=== PATIENT | male | born 1990 | race Caucasian/White ===

== ENCOUNTER 2020-04-25 08:41 | Outpatient (CLI) | payer SELFPAY | END 2020-04-25 09:01 | PROVIDERS: PCP Emergency Medicine; Visit Provider Family Medicine | DX: R69 Illness, unspecified (principal) ==

== ENCOUNTER 2020-09-14 08:25 | Emergency (ER) | payer SELFPAY ==
[2020-09-14] VITALS (23 sets, daily range): BP systolic 116–134; BP diastolic 69–78; PULSE 62–90; RESP 10–24; TEMP 37.4; O2SAT 95–98
--- NOTE | 2020-09-14 08:35 | RT.EKG_ITS ---
APPROVED REPORT Exam: Resting ECG Patient Location: E HR:78 bpm ECG Measurements Heart Rate 78 AXIS HI 138 P 19 QRSd 90 QRS 20 QT 357 T 59 QTc 406 Conclusion Sinus rhythm...normal P axis, V-rate 60- 99 I have reviewed and interpreted ECG and agree with software generated interpretation. Physician: NO stemi. unremarkable
--- NOTE | 2020-09-14 08:36 | ED.GENADUL_ITS ---
Discharge Plan Disposition Patient Disposition: HOME Condition: Fair Discharge Details Clinical Impression: Right lower lobe pulmonary infiltrate, Pulmonary emboli Primary Care Provider: Jairo Leal ED Provider: Naty Luong Home Meds and New Rx's Prescriptions: New Cassandraquis DVT-PE Treat 30D Start 5 mg (74 tabs) tablets,dose pack See Rx Instructions .ROUTE .COMPLEX Qty: 74 RF: 0 doxycycline hyclate 100 mg tablet 100 mg PO BID 7 Days Qty: 14 RF: 0 No Action acetaminophen 325 MG tablet 2 - 3 tab PO PRN RF: 0 albuterol sulfate 8.5 GM HFA aerosol inhaler 2 puff Inhalation Q4H PRN Qty: 1 RF: 0 escitalopram oxalate 10 MG tablet 10 mg PO DAILY 30 Days Qty: 30 RF: 5 Discharge Instructions Instructions: Pulmonary Embolism (ED), Community Acquired Pneumonia (ED) Additional Instructions: Follow up with primary care provider in 3-5 days. Return to ED sooner if any worsening or concerns. Increase oral fluids. Please take Tylenol or Ibuprofen with food every 4-6 hours as needed for pain and swelling. Alternate ice and heat. Take medications as directed Referrals: Jairo Leal. [Primary Care Provider] - Medical Decision Making <Naty Luong - Last Filed: 09/14/20 13:40> 30-[id number]-wfv-year-old male presents to ER with chief complaint of right-sided chest pain and shortness of breath (difficulty taking a deep breath) for the last 4 days. Denies any injury. Denies productive cough. Associated symptoms include diaphoresis, worsening pain with laying down, worsening pain with moving right arm, patient reports that last night his right arm was swollen. He does have a past medical history of asthma, depression. Patient has not taken any Tylenol or ibuprofen since last night. After initial presentation ER attending Dr. Porras at bedside with POCUS viewing the chest wall. There is good chest wall movement. EKG was reviewed by Dr. Karan Porras DO ER attending, please see his official report. Normal sinus rhythm no ectopy no STEMI. Initial troponin within normal limits, CBC shows a white blood cell count of 12.22, D-dimer is elevated at 2000 419 glucose is 114, the rest of the CMP is largely within normal limits. X-rays discontinued and CT chest abdomen pelvis ordered to rule out PE. Questionable loss of bowel or bladder control, per patient report, does have a history of back pain. Does have some right-sided axillary chest pain which radiates up into his neck increase pain with right arm movement. Differential diagnosis includes but not limited to PE, pneumothorax, coronary artery disease, pneumonia, URI, musculoskeletal pain, rib fracture, less likely cauda equina,. 1026: Spoke with Dr. Chan radiologist regarding patient's chest CT there is a pulmonary vessel that is unopacified which is a potential for PE, also some right lower lobe infiltrate and a small pleural effusion on the right. He recommends ultrasound of the extremity to rule out possible DVT. EXAM: CT CHEST PE ABD PELVIS W CLINICAL HISTORY: Right sided chest pain, Back Pain,?Urinary incont. TECHNIQUE: Imaging Protocol: Axial CT angiography was performed with multi- slice acquisition and multi-planar and/or 3D reconstructions. CONTRAST MATERIAL: Intravenous: Omnipaque 350 Contrast volume:100 mL COMPARISON: CT RENAL COLIC WO CONTRAST from 12/10/2010 FINDINGS: The examination is limited due to patient motion artifact. CHEST: Pulmonary Arteries: There is a single vessel which shows no enhancement in the right middle lobe. The possibility of pulmonary embolus should be considered. No other pulmonary artery filling defects are seen. Tracheobronchial tree: Patent where visualized. Mediastinum and Brittani: No dominant adenopathy or fluid collection. Pulmonary parenchyma: Peripheral ground-glass opacities in the right middle and right lower lobes. The left lung is clear. No architectural distortion. Pleura: There is a small right pleural effusion. No left pleural effusion is present. There is no pneumothorax. Heart: The heart is not dilated. No coronary artery calcifications are seen. No pericardial effusion. No evidence of right heart strain. Aorta: Thoracic aorta non-dilated. No evidence of dissection. Bones: Normal. ABDOMEN: Liver: Fatty liver. No measurable mass. Portal, Superior Mesenteric, and Splenic Veins: Unremarkable. Gallbladder and Biliary Tract: No radiodense calculus or dilation. Pancreas: Normal density, no abnormal calcifications or inflammatory process. Spleen: Normal. Adrenals: No masses seen. Kidneys: Normal size, contour and axis. Right nephrolithiasis. No ureterolithiasis or hydronephrosis. No masses seen. Abdominal Aorta: Abdominal portion non-dilated. Bowel: No obstruction or bowel wall thickening. Appendix is unremarkable. Peritoneal Cavity: No ascites, collection or mesenteric inflammatory response. Lymph Nodes: Within normal limits. Bones: Unremarkable. Soft Tissues: Unremarkable. PELVIS: Bladder: Symmetric distention, no gross wall thickening. Reproductive Organs: Unremarkable as visualized. Lymph Nodes: Within normal limits. Bones: Within normal limits. IMPRESSION: 1. Single pulmonary artery vessel in the right middle lobe which lacks enhancement suspicious for pulmonary embolus. No evidence of right heart strain. 2. Peripheral right middle and right lower lobe infiltrates and right pleural effusion. An infectious or inflammatory process should be considered. 3. Extremity ultrasound should be considered for further evaluation. 4. Right nephrolithiasis. No hydronephrosis. 5. Fatty infiltration of the liver. 6. No acute abdominal or pelvic process. 7. Results of this exam have been verbally communicated with provider. 1037: Spoke with Dr. Kang discussed patient case and details, she does not recommend admission at this time due to patient requiring no oxygen, and not being tachypneic. At this time ultrasound of right upper extremity is pending to rule out DVT. Covid test ordered and is pending. Patient will become PUI. 1224: Covid swab negative patient is no longer PUI. We will give patient 10 mg Eliquis and start patient on doxycycline here in department for possible pneumonia. Exam(s) a US:US upper extremity venous RT EXAM: US UPPER EXTREMITY VENOUS RT CLINICAL HISTORY: R/O DVT, Right arm swelling discoloration. TECHNIQUE: Ultrasound examination of the right upper extremity venous system(s) is performed using grayscale, color-flow, and spectral Doppler analysis. COMPARISON: No exams were available for comparison FINDINGS: The right internal jugular, axillary, subclavian, cephalic, basilic, brachial, radial, and ulnar veins are patent without evidence of thrombosis. IMPRESSION: No DVT. Patient reevaluation and discussion of home care and strict return instructions. Patient is to be discharged on doxycycline 100 mg twice daily and Eliquis. First dose of 10 mg given here in department. Patient states he is rather go home when he is feeling somewhat better prior to discharge. Discussed strict return instructions including increased shortness of breath, fever, worsening trouble breathing or any concerns. Patient placed on the care management list for follow-up with PCP in 3 to 5 days. HPI <Naty Luong - Last Filed: 09/14/20 13:40> General Mode of arrival: wheelchair . Date/Time Provider Initiated Documentation: 09/14/20 08:25 . Limitations to Documentation: no limitations . Information obtained by: patient . HPI Narrative: 89-vidg-[age]-year-old male presents to ER with chief complaint of right-sided chest pain and shortness of breath (difficulty taking a deep breath) for the last 4 days. Denies any inj ury. Denies productive cough. Associated symptoms include diaphoresis, worsening pain with laying down, worsening pain with moving right arm, patient reports that last night his right arm was swollen. He does have a past medical history of asthma, depression. Patient has not taken any Tylenol or ibuprofen since last night. Related Data Home Medications Medication Instructions Recorded Confirmed acetaminophen 2 - 3 tab PO PRN 03/31/13 albuterol sulfate 2 puff INHALATION Q4H PRN #1 puff 03/31/13 escitalopram oxalate 10 mg PO DAILY 30 Days #30 tab-cap 05/27/17 apixaban [Eliquis DVT-PE Treat 30D See Rx Instructions .ROUTE 09/14/20 Start] .COMPLEX #74 dose pk doxycycline hyclate 100 mg PO BID 7 Days #14 tab 09/14/20 Previous Rx's Medication Instructions Recorded escitalopram oxalate 10 mg PO DAILY 30 Days #30 tab-cap 05/27/17 apixaban [Eliquis DVT-PE Treat 30D See Rx Instructions .ROUTE 09/14/20 Start] .COMPLEX #74 dose pk doxycycline hyclate 100 mg PO BID 7 Days #14 tab 09/14/20 Allergies Allergy/AdvReac Type Severity Reaction Status Date / Time Penicillins Allergy Unknown unkown as Unverified 09/14/20 08:39 child Review of Systems <Naty Luong - Last Filed: 09/14/20 13:40> Narrative: Constitutional: Negative for weight loss, alert and oriented, well groomed, normal body habitus, appears uncomfortable. Positive diaphoresis. Denies fever. HEENT: Denies trauma, blurry vision, nasal discharge, trouble swallowing. Reports pain that radiates up into the right side of his neck, states it hurts when I swallow. Chest: Denies palpitations, irregular rhythm, hypertension. Positive right- sided axillary chest pain.. Respiratory: Denies cough, hemoptysis. Positive shortness of breath. Increased pain with deep breathing. GI: Denies abdominal pain, nausea, vomiting, diarrhea, constipation. : Denies dysuria, hematuria, flank pain, rectal bleeding. Neuro: Denies dizziness, blurry vision, weakness, syncope, headache or facial numbness. Hematologic: Denies easy bruising, intolerance to heat or cold, hair loss. PFSH <Naty Ag - Last Filed: 09/14/20 13:40> Social History Smoking/Tobacco Use Status: Current-Occasional Smoking risk assessment performed?: Yes Alcohol Intake: never Drug use: Occasionally Substance use type: marijuana Exam <Naty Luong - Last Filed: 09/14/20 13:40> Narrative Exam Narrative: Constitutional: Alert and oriented x3. Appears stated age. Normal body habitus. Head: Normocephalic, no trauma. Eyes: Pupils PERRLA, Red reflex noted, EOM's intact. Eyelids symmetrical without lesions, discharge, or swelling. ENT: Bilateral TM's WNL, External ear normal to inspection, no mastoid TTP, swelling, or erythema, Nasal turbinates WNL, no nasal discharge. Normal dentition, Posterior pharynx WNL, no exudate. Chest: RRR, Normal S1, S2, distal pulses intact. Resp: Lungs clear to auscultation bilaterally, no wheezes, rales, or rhonchi. Musculoskeletal: Normal gait, 5/5 strength to all four extremities. Abdomen: Soft, nondistended nontender to palpation all 4 quadrants. Skin: No suspicious rashes or lesions. Capillary refill less than 2 sec. Neurologic: Cranial nerves II-XII intact. Alert and oriented x 3. DTR's intact. Hematologic/Lymphatic: No ecchymosis, no lymphadenopathy. <Wilmer Porras DO - Last Filed: 09/14/20 10:06> Other Description: Pulmonary ultrasound: Exam type: Diagnostic Indication for exam: Chest pain Views obtained: R lung, L lung Findings and interpretations: all views were adequate. Normal lung sliding, normal sea shore sign, no bar code sign indicating no pneumothorax. The patient tolerated the procedure well and there were no complications.
--- NOTE | 2020-09-14 08:45 | DI.CT_ITS ---
EXAM: CT CHEST PE ABD PELVIS W CLINICAL HISTORY: Right sided chest pain, Back Pain,?Urinary incont. TECHNIQUE: Imaging Protocol: Axial CT angiography was performed with multi-slice acquisition and mu lti-planar and/or 3D reconstructions. CONTRAST MATERIAL: Intravenous: Omnipaque 350 Contrast volume:100 mL COMPARISON: CT RENAL COLIC WO CONTRAST from 12/10/2010 FINDINGS: The examination is limited due to patient motion artifact. CHEST: Pulmonary Arteries: There is a single vessel which shows no enhancement in the right middle lobe. Th e possibility of pulmonary embolus should be considered. No other pulmonary artery filling defects a re seen. Tracheobronchial tree: Patent where visualized. Mediastinum and Brittani: No dominant adenopathy or fluid collection. Pulmonary parenchyma: Peripheral ground-glass opacities in the right middle and right lower lobes. T he left lung is clear. No architectural distortion. Pleura: There is a small right pleural effusion. No left pleural effusion is present. There is no p neumothorax. Heart: The heart is not dilated. No coronary artery calcifications are seen. No pericardial effusion. No evidence of right heart strain. Aorta: Thoracic aorta non-dilated. No evidence of dissection. Bones: Normal. ABDOMEN: Liver: Fatty liver. No measurable mass. Portal, Superior Mesenteric, and Splenic Veins: Unremarkable. Gallbladder and Biliary Tract: No radiodense calculus or dilation. Pancreas: Normal density, no abnormal calcifications or inflammatory process. Spleen: Normal. Adrenals: No masses seen. Kidneys: Normal size, contour and axis. Right nephrolithiasis. No ureterolithiasis or hydronephrosis . No masses seen. Abdominal Aorta: Abdominal portion non-dilated. Bowel: No obstruction or bowel wall thickening. Appendix is unremarkable. Peritoneal Cavity: No ascites, collection or mesenteric inflammatory response. Lymph Nodes: Within normal limits. Bones: Unremarkable. Soft Tissues: Unremarkable. PELVIS: Bladder: Symmetric distention, no gross wall thickening. Reproductive Organs: Unremarkable as visualized. Lymph Nodes: Within normal limits. Bones: Within normal limits. IMPRESSION: 1. Single pulmonary artery vessel in the right middle lobe which lacks enhancement suspicious for pul monary embolus. No evidence of right heart strain. 2. Peripheral right middle and right lower lobe infiltrates and right pleural effusion. An infectiou s or inflammatory process should be considered. 3. Extremity ultrasound should be considered for further evaluation. 4. Right nephrolithiasis. No hydronephrosis. 5. Fatty infiltration of the liver. 6. No acute abdominal or pelvic process. 7. Results of this exam have been verbally communicated with provider. RADIATION DOSE DELIVERED: 2,008.64mGy.cm Total DLP 2,008.64mGy.cm Total DLP DATA REPOSITORY: All CT scans at this facility are submitted to the National Radiology Data Registry (NRDR) Dose Index Registry (DIR) with the [employer] ([employer]). RADIATION OPTIMIZATION: All CT scans at this facility use at least one of these dose optimization te chniques: automated exposure control; mA and/or kV adjustment per patient size (includes targeted exa ms where dose is matched to clinical indication); or iterative reconstruction.
[2020-09-14 08:46] LABS: Abs Immature Grans 0.05 10^3/uL (0.0-0.06); Absolute Basophil Count 0.01 10^3/uL (0.0-0.2); Absolute Eosinophil Count 0.04 10^3/uL (0.0-0.7); Absolute Lymphocyte Count 1.82 10^3/uL (1.2-3.4); Absolute Monocyte Count 1.19 10^3/uL (0.1-0.8); Basophils % 0.1; Eosinophils % 0.3; HCT 41.7 % (40.0-50.0); HGB 13.8 g/dL (13.5-17.5); Immature Grans % 0.4; Lymphocytes % 14.9; MCH 27.2 pg (27.0-33.0); MCHC 33.1 % (32.0-36.0); MCV 82.2 fL (80-95); Monocytes % 9.7; Neutrophils % 74.6; Nucleated RBC 0 %; Platelet Count 217 10^3/uL (130-400); RBC 5.07 10^6/uL (4.36-5.78); RDW 12.5 % (11.8-14.1); RDW-SD 37.5 fL; WBC 12.22 10^3/uL (4.4-10.8)
[2020-09-14 08:47] LABS: Absolute Neutrophil Count 9.12 10^3/uL (1.2-6.7)
[2020-09-14 09:00] LABS: ALT 48 U/L (16-63); AST 25 U/L (15-37); Albumin 4.3 g/dL (3.4-5.0); Alkaline Phosphatase 88 U/L (46-116); Anion Gap 7.3 mmol/L (3-11); BUN 8 mg/dL (7-18); Bilirubin, Total 0.7 mg/dL (0.2-1.0); CO2 30.7 mmol/L (21.0-32.0); CREATININE 1.1 mg/dL (0.70-1.30); Calcium 9.7 mg/dL (8.5-10.1); Chloride 98 mmol/L (98-107); Glucose 114 mg/dL (74-106); Magnesium 1.8 mg/dL (1.8-2.4); Potassium 3.9 mmol/L (3.5-5.1); Sodium 136 mmol/L (136-145); Total Protein 9.2 g/dL (6.4-8.2)
[2020-09-14 09:01] LABS: Troponin I < 0.05 ng/mL (<0.06)
[2020-09-14] MEDS: Normal Saline 1,000 ML 1000 ML IV (09:02)
[2020-09-14] MEDS: Ondansetron 4 MG/2 ML VIAL IVP (09:03)
[2020-09-14 09:13] LABS: D-Dimer 2419 ng/mlFEU (<500)
--- NOTE | 2020-09-14 09:38 | NUR.NOTE ---
Nursing Note: [phone]
[2020-09-14] MEDS: Omnipaque 350 MG/ML 100 ML BTL IJ (09:58)
[2020-09-14] MEDS: Normal Saline - Diluent 50 ML VIAL IV (09:59)
--- NOTE | 2020-09-14 10:15 | DI.US_ITS ---
EXAM: US UPPER EXTREMITY VENOUS RT CLINICAL HISTORY: R/O DVT, Right arm swelling discoloration. TECHNIQUE: Ultrasound examination of the right upper extremity venous system(s) is performed using g rayscale, color-flow, and spectral Doppler analysis. COMPARISON: No exams were available for comparison FINDINGS: The right internal jugular, axillary, subclavian, cephalic, basilic, brachial, radial, and ulnar vein s are patent without evidence of thrombosis. IMPRESSION: No DVT. DATA REPOSITORY:
[2020-09-14 10:23] LABS: Bilirubin Negative (Negative); Blood Trace-lysed (Negative); Clarity Clear (Clear); Glucose Negative (Negative); Ketones Negative (Negative); Leukocyte Esterase Negative (Negative); Nitrite Negative (Negative); Urobilinogen 0.2 EU/dL (Up TO 0.2); pH 6.5 (5-8)
[2020-09-14 10:28] LABS: Bacteria Negative HPF (Negative); C & S Indicated? No; Casts Negative LPF (Negative); Crystals Negative HPF (Negative); Epithelial Cells Rare HPF (Negative); Mucus Trace (Negative); RBC 0-2 HPF (0-2); WBC Negative HPF (0-5)
[2020-09-14 11:54] LABS: COVID-19 PCR Negative (Negative)
[2020-09-14] MEDS: Apixaban 5 MG TAB 10 MG PO (12:22)
[2020-09-14] MEDS: Doxycycline Hyclate 100 MG CAP PO (12:37)
[2020-09-14] MEDS: Doxycycline Hyclate 100 MG, 2 CAPS/BTL PO (12:37)
--- NOTE | 2020-09-14 12:57 | NUR.NOTE ---
Nursing Note: Faxed follow up to CM
[2020-09-14] MEDS: oxyCODONE 5 mg/Acetaminophen 325 mg TAB 1 TAB PO (12:58)
[2020-09-14 13:12] LABS: Troponin I < 0.05 ng/mL (<0.06)
--- NOTE | 2020-09-17 09:48 | PDOC.ERCMPRO ---
- If Service Date Differs Date of service: 09/17/20 Time of Service: 09:49 Care Management Progress Note Dane was seen in the ED on 09/15/20 for pneumonia and PE. ELLI received a telephone call from Vonnie Dudley, chronic client care coordinator at [facility], this morning. Vonnie reports that Dane has not been seen at [facility] for approximately 15 years, so he will need to obtain a follow up appointment with the on-call provider. He additionally appears to be without health insurance. ELLI attempts to contact Dane by telephone at the phone number listed in his medical chart ([phone]) but is unsuccessful as the phone number is disconnected. ELLI then emails Dane at the email on file ( ), asking that he contact me. If I have not heard from him by this afternoon, I will outreach to his contacts.
== END 2020-09-14 13:07 | disposition home or self-care (01) ==
PROVIDERS: Emergency Provider Registered Nurse Emergency; PCP Family Medicine
DX: I26.99 Other pulmonary embolism without acute cor pulmonale (principal); R91.8 Other nonspecific abnormal finding of lung field
CPT/HCPCS: 36410; 36415; 71275; 74177; 80053; 87040; 87635; 93005; 96361; 96374; 96375; 99285; 81003; 81015; 83735; 84484; 85025; 85379; 93010; 93971; 99284; J2405; J3490

== ENCOUNTER 2021-03-06 09:50 | Emergency (ER) | payer MEDICAID, SELFPAY ==
[2021-03-06 09:56] VITALS: BP 120/74; PULSE 66; RESP 12; TEMP 36.9; O2SAT 100
--- NOTE | 2021-03-06 10:06 | W.ED.GENAD ---
Discharge Plan Disposition Patient Disposition: HOME Condition: Stable Discharge Details Clinical Impression: Dental infection Primary Care Provider: Unknown,Unknown ED Provider: Onur lGaser Home Meds and New Rx's Prescriptions: New prednisone 20 mg tablet 60 mg PO DAILY 5 Days Qty: 15 RF: 0 clindamycin HCl 150 mg capsule 450 mg PO TID 7 Days Qty: 63 RF: 0 Continued acetaminophen 325 MG tablet 2 - 3 tab PO PRN RF: 0 albuterol sulfate 8.5 GM HFA aerosol inhaler 2 puff Inhalation Q4H PRN Qty: 1 RF: 0 escitalopram oxalate 10 MG tablet 10 mg PO DAILY 30 Days Qty: 30 RF: 5 Eliquis DVT-PE Treat 30D Start 5 mg (74 tabs) tablets,dose pack See Rx Instructions .ROUTE .COMPLEX Qty: 74 RF: 0 Discharge Instructions Additional Instructions: follow up with your dentist as soon as possible you can take 1000mg tylenol and 600mg ibuprofen every 6 hours for pain as needed if you feel more ill, have fevers or severe worsening of pain return to the emergency department Medical Decision Making 30 yo male with hx of PE comes in with left jaw swelling for 2 days. He denies fevers and is still swallowing normally. He states he broke his left lower posterior molar a month or so ago while eating. He has mild swelling along the left lower mandible, no submandibular swelling, no pain over the hyoid or restricted neck movements. On oral exam has normal uvula that is midline, normal posterior pharynx, his left lower posterior molar is eroded no visible drainable abscess on exam and normal left tm and external auditory canal. Suspect dental infection, no findings to suggest ludwigs, rpa, well logging captain or epiglottitis on exam. Will start him on clindamycin and prednisone for his swelling and advised to follow up with dentist, return precautions given Differential Diagnosis Differential Diagnosis: dental infection, abscess HPI General Mode of arrival: ambulatory. Date/Time Provider Initiated Documentation: 03/06/21 09:50. Limitations to Documentation: no limitations. Information obtained by: patient. History of Present Illness 30 year old M presents to the emergency department with the chief complaint of left jaw swelling, described as moderate, Quality is described as aching, and is localized to the face and mouth. Patient reports no radiation. Patient started experiencing this day(s) (2) and it has been constant. No relieving factors improve symptom(s), No exacerbating factors reported . Patient did receive the following treatments prior to arrival, none Related Data Home Medications Medication Instructions Recorded Confirmed acetaminophen 2 - 3 tab PO PRN 03/31/13 03/06/21 albuterol sulfate 2 puff INHALATION Q4H PRN #1 puff 03/31/13 03/06/21 escitalopram oxalate 10 mg PO DAILY 30 Days #30 tab-cap 05/27/17 03/06/21 Eliquis DVT-PE Treat 30D Start See Rx Instructions .ROUTE 09/14/20 .COMPLEX #74 dose pk clindamycin HCl 450 mg PO TID 7 Days #63 cap 03/06/21 prednisone 60 mg PO DAILY 5 Days #15 tab 03/06/21 Previous Rx's Medication Instructions Recorded escitalopram oxalate 10 mg PO DAILY 30 Days #30 tab-cap 05/27/17 Eliquis DVT-PE Treat 30D Start See Rx Instructions .ROUTE 09/14/20 .COMPLEX #74 dose pk clindamycin HCl 450 mg PO TID 7 Days #63 cap 03/06/21 prednisone 60 mg PO DAILY 5 Days #15 tab 03/06/21 Allergies Allergy/AdvReac Type Severity Reaction Status Date / Time Penicillins Allergy Unknown unkown as Unverified 03/06/21 10:00 child General Stated Complaint: DentalOral KHADRA: 4 Review of Systems All systems reviewed & are unremarkable except as noted in HPI and below Constitutional Constitutional: Denies chills, Denies fever(s) and Denies weakness ENT Ears, Nose, Mouth, and Throat: Denies change in voice Cardiovascular Cardiovascular: Denies chest pain and Denies dyspnea Respiratory Respiratory: Denies cough and Denies dyspnea Gastrointestinal Gastrointestinal: Denies abdominal pain, Denies nausea and Denies vomiting Musculoskeletal Musculoskeletal: Denies joint swelling Integumentary/Breasts Skin/Breast: Denies rash Neurologic Neurologic: Denies weakness [facility] Social History Smoking/Tobacco Use Status: Former Tobacco Use Smoking risk assessment performed?: Yes Alcohol Intake: never Drug use: Occasionally Substance use type: marijuana Do you feel safe at home: Yes Do you feel safe in your relationship?: Yes Exam Const General: no acute distress Orientation: alert HENMT Head: normal to inspection Ears: external ears normal General nose exam: external nose normal Mouth: moist mucous membranes Eyes General: appearance normal, both eyes and all related structures Neck Neck: normal visual inspection Resp Effort & Inspection: normal respiratory effort and able to speak in complete sentences Cardio Rate: regular rate Skin General skin exam: no rashes or lesions noted Neuro General: patient alert and patient oriented x3 Extrem General: normal to inspection Psych Mental Status: mental status grossly normal Course Vital Signs Vital signs: Vital Signs Temperature 36.9 C 03/06/21 09:56 Pulse 66 03/06/21 09:56 Respiratory Rate 12 03/06/21 09:56 Blood Pressure 120/74 03/06/21 09:56 Pulse Oximetry 100 03/06/21 09:56 Temperature 36.9 C 03/06/21 09:56 Temperature Source Tympanic 03/06/21 09:56 Pulse 66 03/06/21 09:56 Respiratory Rate 12 03/06/21 09:56 Respiratory Effort Non-Labored 03/06/21 10:00 Blood Pressure 120/74 03/06/21 09:56 Blood Pressure Position Sitting 03/06/21 09:56 Pulse Oximetry 100 03/06/21 09:56 Oxygen Delivery Method Room Air 03/06/21 09:56 Oxygen Flow Rate 0 03/06/21 09:56 Pain Level 3 03/06/21 09:56 PAWSS Pt Consumed Any Amount of Alcohol Within the Last 30 days OR had positive LAUREN Upon Admission: No
== END 2021-03-06 10:26 | disposition home or self-care (01) ==
PROVIDERS: Emergency Provider Emergency Medicine
DX: K04.7 Periapical abscess without sinus (principal); R22.0 Localized swelling, mass and lump, head
CPT/HCPCS: 99283

== ENCOUNTER 2022-01-19 16:27 | Observation (INO) | payer MEDICAID, SELFPAY ==
[2022-01-19] VITALS (8 sets, daily range): BP systolic 114–149; BP diastolic 74–99; PULSE 56–123; RESP 16–24; TEMP 36.4–38.8; O2SAT 97–100
--- NOTE | 2022-01-19 16:30 | RT.EKG_ITS ---
APPROVED REPORT Exam: Resting ECG Reason for Exam: SOB Patient Location: E HR:123 bpm ECG Measurements Heart Rate 123 AXIS MT 134 P 27 QRSd 87 QRS 27 QT 281 T 61 QTc 402 Conclusion Sinus tachycardia., narrow complex, repolarization abnormalities
--- NOTE | 2022-01-19 16:45 | DI.CT_ITS ---
Exam(s) CT CHEST PE CTA EXAM: CT CHEST PE CTA CLINICAL HISTORY: R sided pain, hx of PE. TECHNIQUE: Imaging Protocol: CT angiography of the chest was performed using pulmonary embolus grayson col. Multi planar reconstructions were performed. CONTRAST MATERIAL: Intravenous: Omnipaque 350 Contrast volume: 89 cc COMPARISON: CT CT CHEST PE ABD PELVIS W from 09/14/2020 FINDINGS: CHEST: PULMONARY ARTERIES: Less than optimal opacification of distal pulmonary arteries. However, there carreon s appear to be intraluminal filling defect in at least 2 adjacent right lower lobe pulmonary arteries . LUNGS: There are no confluent infiltrates nor evidence of pulmonary infarction.. Mild increased valentino ings noted both lung bases. There are no pleural effusions. MEDIASTINUM: There is no hilar nor mediastinal adenopathy. Nodules are noted in both thyroid lobes. CARDIAC: Heart size is upper normal. There is no pericardial effusion.Caliber of the thoracic aorta is within normal limits. No dissection there is no significant shift of the interventricular septum. PARTIALLY VISUALIZED UPPERMOST ABDOMEN: Hepatic steatosis evident. No splenomegaly. No ascites evid ent in the upper abdomen. No adrenal masses. OSSEOUS: No significant osseous lesions.. IMPRESSION: 1. Study is positive for pulmonary emboli in the right lower lobe, as discussed above..No evidence of pulmonary infarction. No pleural effusions. 2. No intrathoracic adenopathy. RADIATION DOSE DELIVERED: 666.68mGy.cm Total DLP DATA REPOSITORY: All CT scans at this facility are submitted to the National Radiology Data Registry (NRDR) Dose Index Registry (DIR) with the [employer] (A[employer]). RADIATION OPTIMIZATION: All CT scans at this facility use at least one of these dose optimization te chniques: automated exposure control; mA and/or kV adjustment per patient size (includes targeted exa ms where dose is matched to clinical indication); or iterative reconstruction.
--- NOTE | 2022-01-19 16:56 | ED.GENADUL_ITS ---
Discharge Plan Disposition Patient Disposition: [facility] INPATIENT Condition: Serious Discharge Details Chief Complaint: SOB Clinical Impression: Pulmonary embolism on right Primary Care Provider: Unknown,Unknown ED Provider: Scotty Blackburn Home Meds and New Rx's Prescriptions: No Action acetaminophen 325 MG tablet 2 - 3 tab PO PRN albuterol sulfate 8.5 GM HFA aerosol inhaler 2 puff Inhalation Q4H PRN Qty: 1 Rx Instructions: spacer Medical Decision Making Patient is a 31-year-old male, non-smoker, past medical history of asthma, he is not vaccinated against COVID, presenting for 2-day history of right-sided chest pain, subjective fever and chills, dry cough. Patient reports similar presenta tion last year when diagnosed with pneumonia and PE. He never followed up or continued any of the medications after his initial discharge medications from the hospital. Clinically he appears uncomfortable, he is febrile, pulse in the 120s. We will initiate both a septic and cardiac work-up. Given his history of PE, not anticoagulated, will go directly to a CTA of the chest. Given his pulse and temp, will provide p.o. doxycycline and blood cultures will be obtained. He will also be given 2 L IV fluid Laboratory values reveal a white blood cell count of 10.78, neutrophils of 7.39, INR is 1.0, D-dimer is 3183, lactate of 2.2 electrolytes unremarkable, renal function normal, magnesium 1.6, troponin less than 50, BNP of 49, procalcitonin less than 0.1. COVID, flu, RSV all negative. Upon reevaluation patient is no longer febrile and his pulse is in the 90s CTA is concerning for probable small right lower lobe emboli versus artifact, no evidence of right heart strain. Given his initial presentation, elevated lactate, now being diagnosed with his second PE with no proper outpatient follow-up, I do believe admitting him to our facility for further evaluation and to help expedite outpatient care is reasonable. We will give first dose of Eliquis now. Patient only took 1 month of Eliquis after his initial diagnosis, difficult to say that he failed outpatient therapy, more likely secondary to noncompliance. Case discussed with Dr. Rowe who is agreeable for admission and he will write admission orders This documentation was generated using [employer] system, please disregard any oddities of phrase or misspellings. Medical Records Medical records reviewed: Yes I reviewed the patient's medical records. Imaging Data Radiologic Study: Attestation: I personally reviewed and interpreted this imaging study as follows: Imaging: CT Scan Radiologist's impression: PROCEDURE INFORMATION: Exam: CTA Chest With Contrast Exam date and time: 022 5:24 PM Age: 31 years old Clinical indication: Other: R sided pain, HX of pe TECHNIQUE: Imaging protocol: Computed tomographic angiography of the chest with contrast. 3D rendering (Not supervised by radiologist): MIP and/or 3D reconstructed images were created by the technologist. Radiation optimization: All CT scans at this facility use at least one of these dose optimization techniques: automated exposure control; mA and/or kV adjustment per patient size (includes targeted exams where dose is matched to clinical indication); or iterative reconstruction. Contrast material: OMNIPAQUE 350; Contrast volume: 99 ml; Contrast route: INTRAVENOUS (IV); COMPARISON: CT CHEST PE ABD PELVIS W 09/14/2020 9:39 AM FINDINGS: Pulmonary arteries: Normal. No pulmonary emboli. Aorta: Unremarkable. No aortic aneurysm. No aortic dissection. Other arteries: There is poor enhancement of some right lower lobe vessels. It is uncertain if this relates to intraluminal thrombus or respiratory motion. This is appreciated on axial, sagittal and coronal evaluation and is more conspicuous than on the left side. Suspect small emboli.Lungs: Mild right lower lobe and middle lobe the atelectasis. Pleural spaces: Unremarkable. No pneumothorax. No pleural effusion. Heart: Unremarkable. No cardiomegaly. No pericardial effusion. Heart RV/LV ratio: RV to LV ratio is less than 1, within normal limits. Lymph nodes: Un remarkable. No enlarged lymph nodes. Liver: Fatty liver. Bones/joints: Unremarkable. No acute fracture. Soft tissues: Unremarkable. Other findings: Respiratory motion slightly limits the exam. IMPRESSION: Probable small right lower lobe emboli versus artifact of motion. No evidence for right heart strain Lab Data Lab results reviewed: Yes I reviewed the patient's lab results. Labs: 01/19/22 18:20 Blood Blood Culture - Pending 01/19/22 18:15 Blood Blood Culture - Pending Laboratory Tests Range/Units 01/19/22 01/19/22 01/19/22 17:15 17:15 17:15 WBC (4.4-10.8) 10^3/uL 10.78 RBC (4.36-5.78) 10^6/uL 5.14 Hgb (13.5-17.5) g/dL 14.2 Hct (40.0-50.0) % 42.2 MCV (80-95) fL 82 MCH (27.0-33.0) pg 27.6 MCHC (32.0-36.0) % 33.6 RDW (11.8-14.1) % 12.3 Plt Count (130-400) 10^3/uL 282 MPV (8.0-11.0) fL 9.7 Immature Gran % 0.5 Neutrophils % 68.5 Lymphocytes % 21.7 Monocytes % 8.6 Eosinophils % 0.4 Basophils % 0.3 Nucleated RBC % (0.0-0.3) % 0.0 Absolute Neutrophils (1.2-6.7) 10^3/uL 7.39 H Absolute Lymphocytes (1.2-3.4) 10^3/uL 2.34 Absolute Monocytes (0.1-0.8) 10^3/uL 0.93 H Absolute Eosinophils (0.0-0.7) 10^3/uL 0.04 Absolute Basophils (0.0-0.2) 10^3/uL 0.03 PT (9.3-11.0) sec INR (0.9-1.1) APTT (21.0-27.5) sec D-Dimer (<500) ng/mlFEU VBG Lactate (0.6-1.4) mmol/L 2.2 H* Sodium (136-145) mmol/L 139 Potassium (3.5-5.1) mmol/L 3.7 Chloride (98-107) mmol/L 100 Carbon Dioxide (21.0-32.0) mmol/L 29.8 Anion Gap (3-11) mmol/L 9.2 BUN (7-18) mg/dL 5 L Creatinine (0.70-1.30) mg/dL 1.1 Estimated GFR/1.73 m2 (mL/min/1.73m2) >= 60.00 Glucose (74-106) mg/dL 143 H Calcium (8.5-10.1) mg/dL 9.2 Magnesium (1.8-2.4) mg/dL 1.6 L Total Bilirubin (0.2-1.0) mg/dL 0.4 AST (15-37) U/L 27 ALT (16-63) U/L 64 H Alkaline Phosphatase (46-116) U/L 91 Troponin I (<or=60) ng/L < 50 NT-Pro-B Natriuret Pep (<300) pg/mL 49 Total Protein (6.4-8.2) g/dL 8.8 H Albumin (3.4-5.0) g/dL 4.3 Procalcitonin ng/mL COVID-19 Source SARS-CoV-2 (PCR) (Negative) Influenza Type A (PCR) (Negative) Influenza Type B (PCR) (Negative) RSV (PCR) (Negative) Range/Units 01/19/22 01/19/22 01/19/22 17:15 17:15 17:20 WBC (4.4-10.8) 10^3/uL RBC (4.36-5.78) 10^6/uL Hgb (13.5-17.5) g/dL Hct (40.0-50.0) % MCV (80-95) fL MCH (27.0-33.0) pg MCHC (32.0-36.0) % RDW (11.8-14.1) % Plt Count (130-400) 10^3/uL MPV (8.0-11.0) fL Immature Gran % Neutrophils % Lymphocytes % Monocytes % Eosinophils % Basophils % Nucleated RBC % (0.0-0.3) % Absolute Neutrophils (1.2-6.7) 10^3/uL Absolute Lymphocytes (1.2-3.4) 10^3/uL Absolute Monocytes (0.1-0.8) 10^3/uL Absolute Eosinophils (0.0-0.7) 10^3/uL Absolute Basophils (0.0-0.2) 10^3/uL PT (9.3-11.0) sec 10.0 INR (0.9-1.1) 1.0 APTT (21.0-27.5) sec 24.2 D-Dimer (<500) ng/mlFEU 3183 H VBG Lactate (0.6-1.4) mmol/L Sodium (136-145) mmol/L Potassium (3.5-5.1) mmol/L Chloride (98-107) mmol/L Carbon Dioxide (21.0-32.0) mmol/L Anion Gap (3-11) mmol/L BUN (7-18) mg/dL Creatinine (0.70-1.30) mg/dL Estimated GFR/1.73 m2 (mL/min/1.73m2) Glucose (74-106) mg/dL Calcium (8.5-10.1) mg/dL Magnesium (1.8-2.4) mg/dL Total Bilirubin (0.2-1.0) mg/dL AST (15-37) U/L ALT (16-63) U/L Alkaline Phosphatase (46-116) U/L Troponin I (<or=60) ng/L NT-Pro-B Natriuret Pep (<300) pg/mL Total Protein (6.4-8.2) g/dL Albumin (3.4-5.0) g/dL Procalcitonin ng/mL < 0.1 COVID-19 Source Not Applicable SARS-CoV-2 (PCR) (Negative) Negative Influenza Type A (PCR) (Negative) Negative Influenza Type B (PCR) (Negative) Negative RSV (PCR) (Negative) Negative ECG Data Attestation: I personally reviewed and interpreted this ECG (s) as follows: Interpretation: Sinus tachycardia, narrow complex, repolarization abnormalities, ventricular rate 123, no STEMI HPI General Mode of arrival: ambulatory . Date/Time Provider Initiated Documentation: 01/19/22 16:33 . Limitations to Documentation: no limitations . Information obtained by: patient . History of Present Illness 31 year old M presents to the emergency department with the chief complaint of R sided chest pain, described as severe and similar to prior episodes, with intensity rated at 9. Quality is described as aching and sharp, and is localized to the chest and right. Patient reports no radiation. Patient started experiencing this day(s) (2) and it has been constant. No relieving factors improve symptom(s), Movement worsens symptoms . Patient notes chest pain, cough (mild,dry) and fever/chills. Patient did receive the following treatments prior to arrival, none Related Data Home Medications Medication Instructions Recorded Confirmed acetaminophen 325 mg tablet 2 - 3 tab PO PRN 03/31/13 01/19/22 albuterol sulfate 90 mcg/actuation 2 puff inhalation Q4H PRN #1 puff 03/31/13 01/19/22 aerosol inhaler Allergies Allergy/AdvReac Type Severity Reaction Status Date / Time Penicillins Allergy Unknown unkown as Unverified 01/19/22 16:38 child General Stated Complaint: SOB KHADRA: 2 Review of Systems Constitutional Constitutional: Denies fatigue, Reports fever(s), Denies headache(s) and Denies weakness Eyes Eyes: Denies change in vision ENT Ears, Nose, Mouth, and Throat: Denies headache(s) and Denies neck pain Cardiovascular Cardiovascular: Reports chest pain and Denies dyspnea Respiratory Respiratory: Reports cough and Denies dyspnea Gastrointestinal Gastrointestinal: Denies abdominal pain, Denies nausea and Denies vomiting Musculoskeletal Musculoskeletal: Denies back pain, Denies neck pain, Denies numbness and Denies tingling Integumentary/Breasts Skin/Breast: Denies rash Neurologic Neurologic: Denies headache(s), Denies numbness, Denies tingling and Denies weakness Endocrine Endocrine: Denies fatigue Hematologic/Lymphatic Hematologic/Lymphatic: Denies easy bleeding and Denies easy bruising PFSH All Active Problems (Updated 01/19/22 @ 19:37 by JADE Sandoval) Pulmonary embolism on right (Acute) Fever (Acute) Pleuritic chest pain (Acute) Medical non-compliance (Acute) Right lower lobe pulmonary infiltrate (Acute) Pulmonary emboli (Chronic) Dental infection (Acute) Social History Smoking/Tobacco Use Status: Former Tobacco Use Smoking risk assessment performed?: Yes Alcohol Intake: never Drug use: Occasionally Substance use type: marijuana Do you feel safe at home: Yes Do you feel safe in your relationship?: Yes Exam Const General: cooperative, healthy appearing, no acute distress and other (Uncomfortable) Orientation: alert, awake and oriented x3 HENMT Head: normal to inspection, normocephalic and atraumatic Face and sinus: normal facial exam Mouth: moist mucous membranes Eyes General: appearance normal, both eyes and all related structures Conjunctivae: conjunctivae normal Neck Neck: normal visual inspection, full ROM, no meningeal signs, trachea midline and supple Resp Effort & Inspection: normal respiratory effort, able to speak in complete sentences and cough Quality of cough: dry (mild) Auscultation: diminished lung sounds on the right in the lower lung keith Cardio Rate: tachycardic (120s) Rhythm: regular rhythm GI Palpation: soft and nontender Back/Spine/Pelvis Back: No back tenderness Skin General skin exam: no rashes or lesions noted Neuro General: patient alert, patient awake, moves all extremities and no focal motor deficits Cognition: normal cognition Speech: speech normal Gait: normal gait Sensory Exam: no sensory deficits noted Extrem General: normal to inspection, full ROM, capillary refill normal, no pedal edema and no calf tenderness Psych Appearance: grossly normal Mental Status: mental status grossly normal Course Vital Signs Vital signs: Vital Signs Temperature 38.8 C H 01/19/22 16:30 Pulse 123 H 01/19/22 16:30 Respiratory Rate 24 01/19/22 16:30 Blood Pressure 149/99 H 01/19/22 16:30 Pulse Oximetry 100 01/19/22 16:30 Temperature 38.8 C H 01/19/22 16:30 Temperature Source Temporal Artery Scan 01/19/22 16:30 Pulse 123 H 01/19/22 16:30 Respiratory Rate 24 01/19/22 16:40 Respiratory Effort 01/19/22 16:40 Respiratory Depth Shallow 01/19/22 16:40 Respiratory Pattern Tachypnea 01/19/22 16:40 Blood Pressure 149/99 H 01/19/22 16:30 Blood Pressure Position Sitting 01/19/22 16:30 Pulse Oximetry 100 01/19/22 16:30 Oxygen Delivery Method Room Air 01/19/22 16:30 Oxygen Flow Rate 0 01/19/22 16:30 Pain Level 10 01/19/22 16:30
[2022-01-19] MEDS: Omnipaque 350 MG/ML 100 ML BTL IJ (17:13)
[2022-01-19] MEDS: Normal Saline 1,000 ML 1000 ML IV (17:19)
[2022-01-19] MEDS: Acetaminophen 500 MG TAB 1000 MG PO (17:19)
[2022-01-19] MEDS: HYDROmorphone 2 MG/ML VIAL (17:26)
[2022-01-19 17:29] LABS: Abs Immature Grans 0.05 10^3/uL (0.0-0.06); Absolute Basophil Count 0.03 10^3/uL (0.0-0.2); Absolute Eosinophil Count 0.04 10^3/uL (0.0-0.7); Absolute Lymphocyte Count 2.34 10^3/uL (1.2-3.4); Absolute Monocyte Count 0.93 10^3/uL (0.1-0.8); Absolute Neutrophil Count 7.39 10^3/uL (1.2-6.7); Basophils % 0.3; Eosinophils % 0.4; HCT 42.2 % (40.0-50.0); HGB 14.2 g/dL (13.5-17.5); Immature Grans % 0.5; Lymphocytes % 21.7; MCH 27.6 pg (27.0-33.0); MCHC 33.6 % (32.0-36.0); MCV 82 fL (80-95); MPV 9.7 fL (8.0-11.0); Monocytes % 8.6; Neutrophils % 68.5; Platelet Count 282 10^3/uL (130-400); RBC 5.14 10^6/uL (4.36-5.78); RDW 12.3 % (11.8-14.1); RDW-SD 37.2 fL; WBC 10.78 10^3/uL (4.4-10.8)
[2022-01-19 17:34] LABS: Lactate 2.2 mmol/L (0.6-1.4)
[2022-01-19 17:45] LABS: PTT Activated 24.2 sec (21.0-27.5)
[2022-01-19 17:54] LABS: ALT 64 U/L (16-63); AST 27 U/L (15-37); Albumin 4.3 g/dL (3.4-5.0); Alkaline Phosphatase 91 U/L (46-116); Anion Gap 9.2 mmol/L (3-11); BUN 5 mg/dL (7-18); Bilirubin, Total 0.4 mg/dL (0.2-1.0); CO2 29.8 mmol/L (21.0-32.0); CREATININE 1.1 mg/dL (0.70-1.30); Calcium 9.2 mg/dL (8.5-10.1); Chloride 100 mmol/L (98-107); Glucose 143 mg/dL (74-106); Magnesium 1.6 mg/dL (1.8-2.4); NT-proBNP 49 pg/mL (<300); Potassium 3.7 mmol/L (3.5-5.1); Sodium 139 mmol/L (136-145); Total Protein 8.8 g/dL (6.4-8.2); Troponin I < 50 ng/L (<or=60)
--- NOTE | 2022-01-19 18:05 | DI.VRAD_ITS ---
Addendum created by Nupur Ingram MD on 01/19/2022 6:06:32 PM EDT: I discussed case findings with Scotty Blackburn 01/19/2022 6:05 PM EDT. Initial report created on 01/19/2022 6:04:46 PM EDT: PROCEDURE INFORMATION: Exam: CTA Chest With Contrast Exam date and time: 01/19/2022 5:24 PM Age: 31 years old Clinical indication: Other: R sided pain, HX of pe TECHNIQUE: Imaging protocol: Computed tomographic angiography of the chest with contrast. 3D rendering (Not supervised by radiologist): MIP and/or 3D reconstructed images were created by the technologist. Radiation optimization: All CT scans at this facility use at least one of these dose optimization techniques: automated exposure control; mA and/or kV adjustment per patient size (includes targeted exams where dose is matched to clinical indication); or iterative reconstruction. Contrast material: OMNIPAQUE 350; Contrast volume: 99 ml; Contrast route: INTRAVENOUS (IV); COMPARISON: CT CHEST PE ABD PELVIS W 09/14/2020 9:39 AM FINDINGS: Pulmonary arteries: Normal. No pulmonary emboli. Aorta: Unremarkable. No aortic aneurysm. No aortic dissection. Other arteries: There is poor enhancement of some right lower lobe vessels. It is uncertain if this relates to intraluminal thrombus or respiratory motion. This is appreciated on axial, sagittal and coronal evaluation and is more conspicuous than on the left side. Suspect small emboli. Lungs: Mild right lower lobe and middle lobe the atelectasis. Pleural spaces: Unremarkable. No pneumothorax. No pleural effusion. Heart: Unremarkable. No cardiomegaly. No pericardial effusion. Heart RV/LV ratio: RV to LV ratio is less than 1, within normal limits. Lymph nodes: Unremarkable. No enlarged lymph nodes. Liver: Fatty liver. Bones/joints: Unremarkable. No acute fracture. Soft tissues: Unremarkable. Other findings: Respiratory motion slightly limits the exam. IMPRESSION: Probable small right lower lobe emboli versus artifact of motion. No evidence for right heart strain. Dictated and Authenticated by: Nupur Ingram MD. Ordering:CHANI Fajardo MD
[2022-01-19 18:22] LABS: COVID-19 PCR Negative (Negative); Influenza A PCR Negative (Negative); Influenza B PCR Negative (Negative); RSV PCR Negative (Negative)
[2022-01-19 18:27] LABS: D-Dimer 3183 ng/mlFEU (<500)
[2022-01-19] MEDS: Doxycycline Hyclate 100 MG CAP PO (18:32)
[2022-01-19] MEDS: Lactated Ringers 1,000 ML 1000 ML IV (18:33)
--- NOTE | 2022-01-19 18:42 | W.PM.HP.N ---
Date of service: 01/19/22 Time of Service: 18:42 Assessment and Plan Assessment and plan (1) Pulmonary emboli: Status: Chronic Assessment and plan: Previous w/u in [facility] ED on 09/14/20 for right sided CP, difficulty taking a deep breath d/t pain. CTA chest showed a possible pulmonary emboli; started on Eliquis. He endorsed taking the start pack but not following up for further refills. No LE DVT found on US during that evaluation. He presented to ED now with c/o sharp/achy right sided chest pain described as severe (02/15). CT chest showed probable small right lower lobe emboli versus artifact of motion. No evidence for right heart strain. Eliquis initiated 10mg BID. CT chest performed this admission and the previous were neither one definitive in identifying a P.E. However, d-dimer significantly elevated each time. Question of these being unprovoked; life-long anticoagulation warranted? Hematology consult as outpt would be helpful. Concerned about compliance with Eliquis. (2) Medical non-compliance: Status: Acute Assessment and plan: See above. Strong encouragement to f/u with a PCP; hasn't been connected to a primary care provider for several years. (3) Pleuritic chest pain: Status: Acute Assessment and plan: Given acetaminophen and a dose of IV dilaudid in the ED. Give toradol 30mg IV x 1. Prn hydrocodone. (4) Fever: Status: Acute Assessment and plan: No WBC elevation or evidence of PNA. However, lactate modestly elevated at 2.2; monitor. Bronchitis? Given po doxycycline in the ED; continue. History of Present Illness History of Present Illness Chief Complaint: Right sided chest pain Narrative: Patient is a 31-year-old male, non-smoker, past medical history of asthma, previous pulmonary embolism, not vaccinated against COVID. He presented with a 2-day history of right-sided chest pain, subjective fever and chills, dry cough.? Patient reports similar presentation last year when diagnosed with pneumonia and PE.? He never followed up or continued any of the medications after his initial discharge medications from the hospital.? In the ED he was febrile, pulse in the 120s.? He was given a fluid bolus of 2L and doxycycline initiated. Laboratory values reveal a white blood cell count of 10.78, neutrophils of 7.39, INR is 1.0, D-dimer is 3183, lactate of 2.2 electrolytes unremarkable, renal function normal, magnesium 1.6, troponin less than 50, BNP of 49, procalcitonin less than 0.1.? COVID, flu, RSV all negative. CTA is concerning for probable small right lower lobe emboli versus artifact, no evidence of right heart strain. Eliquis initiated. PFSH All Active Problems (Updated 01/19/22 @ 19:37 by JADE Sandoval) Pulmonary embolism on right (Acute) Fever (Acute) Pleuritic chest pain (Acute) Medical non-compliance (Acute) Right lower lobe pulmonary infiltrate (Acute) Pulmonary emboli (Chronic) Dental infection (Acute) Social History Smoking/Tobacco Use Status: Former Tobacco Use Smoking risk assessment performed?: Yes Alcohol Intake: never Drug use: Occasionally Substance use type: marijuana Do you feel safe at home: Yes Do you feel safe in your relationship?: Yes Meds Allergies and Home Medications Allergies Allergy/AdvReac Type Severity Reaction Status Date / Time Penicillins Allergy Unknown unkown as Unverified 01/19/22 16:38 child Home Medications Medication Instructions Recorded Confirmed Type acetaminophen 325 mg tablet 2 - 3 tab PO PRN 03/31/13 01/19/22 History albuterol sulfate 90 mcg/actuation 2 puff inhalation Q4H PRN #1 puff 03/31/13 01/19/22 History aerosol inhaler Exam Const General: cooperative and no acute distress Nutritional Appearance: average body habitus Orientation: alert and oriented x3 Eyes General: appearance normal, both eyes and all related structures Sclera: sclerae normal Chest Chest: normal palpation of entire chest wall and no tenderness Resp Effort & Inspection: normal respiratory effort and not able to speak in complete sentences Auscultation: clear to auscultation bilaterally Cardio Rate: regular rate Rhythm: regular rhythm Heart Sounds: S1 normal and S2 normal GI Palpation: soft and nontender Skin General skin exam: no rashes or lesions noted Neuro DTR's: Lt Patellar: 0 Extrem General: no pedal edema and no calf tenderness Psych Appearance: grossly normal Mental Status: mental status grossly normal Speech and Movement: speech and movement normal Affect: blunted Results Labs Result diagrams: 01/19/22 17:15 01/19/22 17:15 Labs: Laboratory Results - last 24 hr 01/19/22 01/19/22 01/19/22 17:15 17:15 17:15 WBC 10.78 RBC 5.14 Hgb 14.2 Hct 42.2 MCV 82 MCH 27.6 MCHC 33.6 RDW 12.3 Plt Count 282 MPV 9.7 Immature Gran % 0.5 Neutrophils % 68.5 Lymphocytes % 21.7 Monocytes % 8.6 Eosinophils % 0.4 Basophils % 0.3 Nucleated RBC % 0.0 Absolute Neutrophils 7.39 H Absolute Lymphocytes 2.34 Absolute Monocytes 0.93 H Absolute Eosinophils 0.04 Absolute Basophils 0.03 PT INR APTT D-Dimer VBG Lactate 2.2 H* Sodium 139 Potassium 3.7 Chloride 100 Carbon Dioxide 29.8 Anion Gap 9.2 BUN 5 L Creatinine 1.1 Estimated GFR/1.73 m2 >= 60.00 Glucose 143 H Calcium 9.2 Magnesium 1.6 L Total Bilirubin 0.4 AST 27 ALT 64 H Alkaline Phosphatase 91 Troponin I < 50 NT-Pro-B Natriuret Pep 49 Total Protein 8.8 H Albumin 4.3 COVID-19 Source SARS-CoV-2 (PCR) Influenza Type A (PCR) Influenza Type B (PCR) RSV (PCR) 01/19/22 01/19/22 17:15 17:20 WBC RBC Hgb Hct MCV MCH MCHC RDW Plt Count MPV Immature Gran % Neutrophils % Lymphocytes % Monocytes % Eosinophils % Basophils % Nucleated RBC % Absolute Neutrophils Absolute Lymphocytes Absolute Monocytes Absolute Eosinophils Absolute Basophils PT 10.0 INR 1.0 APTT 24.2 D-Dimer 3183 H VBG Lactate Sodium Potassium Chloride Carbon Dioxide Anion Gap BUN Creatinine Estimated GFR/1.73 m2 Glucose Calcium Magnesium Total Bilirubin AST ALT Alkaline Phosphatase Troponin I NT-Pro-B Natriuret Pep Total Protein Albumin COVID-19 Source Not Applicable SARS-CoV-2 (PCR) Negative Influenza Type A (PCR) Negative Influenza Type B (PCR) Negative RSV (PCR) Negative Last Vital Signs Temp 37.2 C 01/19/22 17:51 Pulse 90 01/19/22 17:51 Resp 18 01/19/22 17:51 BP 127/81 01/19/22 17:51 Pulse Ox 100 01/19/22 17:51
[2022-01-19] MEDS: Apixaban 5 MG TAB 10 MG PO (18:58)
[2022-01-19 19:03] LABS: Procalcitonin < 0.1 ng/mL
[2022-01-19] MEDS: Ketorolac 30 MG/ML VIAL IVP (19:22)
[2022-01-19] MEDS: Magnesium Oxide 400 MG TAB 800 MG PO (19:23)
[2022-01-19 20:06] LABS: Troponin I < 50 ng/L (<or=60)
[2022-01-19] MEDS: Zolpidem 5 MG TAB PO (22:26)
[2022-01-20 03:15] VITALS: BP 130/76; PULSE 66; RESP 16; TEMP 36.7; O2SAT 98
[2022-01-20 06:00] VITALS: BP 146/82; PULSE 80; RESP 18; TEMP 36.5; O2SAT 99
[2022-01-20] MEDS: Apixaban 5 MG TAB 10 MG PO (06:03)
[2022-01-20 06:13] LABS: Lactate 1.1 mmol/L (0.6-1.4)
[2022-01-20 07:20] VITALS: PULSE 73
[2022-01-20 07:45] VITALS: BP 113/68; PULSE 67; RESP 14; TEMP 37.2; O2SAT 97
[2022-01-20] MEDS: Acetaminophen 325 MG TAB PO (08:15)
[2022-01-20] MEDS: Doxycycline Hyclate 100 MG CAP PO (08:15)
--- NOTE | 2022-01-20 09:59 | W.PM.DS.N ---
Date of service: 01/20/22 Time of Service: 10:00 DS: Diagnosis Discharge Diagnosis (1) Pulmonary emboli: Status: Chronic (2) Medical non-compliance: Status: Acute (3) Pleuritic chest pain: Status: Acute (4) Fever: Status: Acute Discharge Plan Disposition Patient Disposition: HOME Condition: Stable Discharge Details Reason For Visit: Pulmonary Embolism, Pleurisy Admit Date/Time: 01/19/22 18:37 Admit Provider: Dez Rowe Attending Provider: Dez Rowe Primary Care Provider: Unknown,Unknown Hospital Course Hospital Course: This is a 31-year-old male, non-smoker, past medical history of asthma, previous pulmonary embolism, not vaccinated against COVID presented with a 2-day history of right-sided chest pain, subjective fever and chills, dry cough.? He reports a similar presentation last year and was diagnosed with pneumonia and PE.? He never followed up or continued any of the medications after his initial discharge medications from the hospital.? Work up found him to be febrile, pulse in the 120s.? He was given a fluid bolus of 2L and doxycycline initiated. CT scan showed right lower lobe pulmonary emboli. He was started on apixaban and admitted to hospitalist services for observation overnight. Overnight he remained stable with no oxygen requirements, pulse normalizing to the 60's with stable BP. He was still experiencing some pleuritic chest pain but stable for discharge. He will be referred to primary care provider and pulmonary for follow up. He will complete 5 days of doxycycline and continued on eliquis with a one month supply provided. Course of anticoagulation to be determined by outpatient team. discharge discussed with Dr Coughlin Obion Meds and New Rx's Prescriptions: New doxycycline hyclate 100 mg Capsule 100 mg PO BID Qty: 8 0RF hydrocodone-acetaminophen 7.5-325 mg Tablet 1 tab PO Q6H PRN PRNQty: 10 0RF Eliquis 5 mg Tablet 10 mg PO BID Qty: 66 0RF Continued acetaminophen 325 MG tablet 2 - 3 tab PO PRN albuterol sulfate 8.5 GM HFA aerosol inhaler 2 puff Inhalation Q4H PRN Qty: 1 Rx Instructions: spacer Discharge Instructions Instructions: Pulmonary Embolism (DC), Pneumonia (ED) Additional Instructions: continue to take eliquis 10 mg twice daily for 8 more doses (4 days), then decrease to 5 mg twice daily until directed by your doctor. Stand Alone Forms: Nursing Discharge Form Referrals: Enedelia George MD [ [facility] STAFF PHYSICIAN] - 02/26/22 2:00 pm Carlo Ridley DO [OSTEOPATHIC DOCTOR] - 01/24/22 2:30 pm Activity:: Activity as Tolerated Equipment/Supplies:: No Equipment Needed Diet:: As Tolerated Discharge Orders Discharge Orders: Discharge Order (Routine); Ordered 01/20/22 Ordered By: Kelsie Espinosa Discharge Data Discharge Date/Time-TO BE ENTERED AT DEPARTURE: 01/20/22 11:42 DS: Summary Time Spent with Patient providing and/or coordinating discharge services: Less than 30 minutes Status at Discharge Functional status at discharge: independent ambulation Overall status at discharge: patient is progressing back to baseline Mental Status: mental status grossly normal Speech and Movement: speech and movement normal Mood: congruent mood Affect: blunted Exam Const General: cooperative and no acute distress Nutritional Appearance: average body habitus Orientation: alert and oriented x3 Eyes General: appearance normal, both eyes and all related structures Sclera: sclerae normal Chest Chest: normal palpation of entire chest wall and no tenderness Resp Effort & Inspection: normal respiratory effort and not able to speak in complete sentences Auscultation: clear to auscultation bilaterally Cardio Rate: regular rate Rhythm: regular rhythm GI Palpation: soft and nontender Skin General skin exam: no rashes or lesions noted Neuro DTR's: Lt Patellar: 0 Extrem General: no pedal edema and no calf tenderness Psych Appearance: grossly normal Mental Status: mental status grossly normal Speech and Movement: speech and movement normal Mood: congruent mood Affect: blunted DS: Data Vitals/I&O Vitals and I&O: Vital Signs Temperature 37.2 C 01/20/22 07:45 Temperature Source Tympanic 01/20/22 07:45 Pulse 67 01/20/22 07:45 Pulse Rhythm Regular 01/20/22 09:23 Respiratory Rate 14 01/20/22 07:45 Respiratory Effort Non-Labored 01/20/22 09:23 Respiratory Depth Shallow 01/20/22 09:23 Respiratory Pattern Normal 01/20/22 09:23 Blood Pressure 113/68 01/20/22 07:45 Blood Pressure Position Sitting 01/19/22 16:30 Pulse Oximetry 97 01/20/22 07:45 Oxygen Delivery Method Room Air 01/20/22 07:45 Oxygen Flow Rate 0 01/20/22 07:45 Pain Level 9 01/20/22 07:45 Intake & Output 01/19/22 01/19/22 01/20/22 11:59 23:59 11:59 Intake Total 1999 Output Total 700 / 700 400 / 400 Balance 1300 / 1300 -400 / -400 Weight 111.13 kg Intake: IV 1999 Output: Urine 700 / 700 400 / 400 Other: Urine Color Yellow Light Cyn Urine Appearance Clear Clear Urine Odor None None Voiding Methods Urinal Urinal Data Completed and Pending Labs on day of discharge: Labs from last 24 hours 01/20/22 01/19/22 01/19/22 06:03 19:42 17:20 WBC RBC Hgb Hct MCV MCH MCHC RDW Plt Count MPV Immature Gran % Neutrophils % Lymphocytes % Monocytes % Eosinophils % Basophils % Nucleated RBC % Absolute Neutrophils Absolute Lymphocytes Absolute Monocytes Absolute Eosinophils Absolute Basophils PT INR APTT D-Dimer VBG Lactate 1.1 Sodium Potassium Chloride Carbon Dioxide Anion Gap BUN Creatinine Estimated GFR/1.73 m2 Glucose Calcium Magnesium Total Bilirubin AST ALT Alkaline Phosphatase Troponin I < 50 NT-Pro-B Natriuret Pep Total Protein Albumin Procalcitonin COVID-19 Source Not Applicable SARS-CoV-2 (PCR) Negative Influenza Type A (PCR) Negative Influenza Type B (PCR) Negative RSV (PCR) Negative 01/19/22 01/19/22 01/19/22 17:15 17:15 17:15 WBC 10.78 RBC 5.14 Hgb 14.2 Hct 42.2 MCV 82 MCH 27.6 MCHC 33.6 RDW 12.3 Plt Count 282 MPV 9.7 Immature Gran % 0.5 Neutrophils % 68.5 Lymphocytes % 21.7 Monocytes % 8.6 Eosinophils % 0.4 Basophils % 0.3 Nucleated RBC % 0.0 Absolute Neutrophils 7.39 H Absolute Lymphocytes 2.34 Absolute Monocytes 0.93 H Absolute Eosinophils 0.04 Absolute Basophils 0.03 PT 10.0 INR 1.0 APTT 24.2 D-Dimer 3183 H VBG Lactate Sodium Potassium Chloride Carbon Dioxide Anion Gap BUN Creatinine Estimated GFR/1.73 m2 Glucose Calcium Magnesium Total Bilirubin AST ALT Alkaline Phosphatase Troponin I NT-Pro-B Natriuret Pep Total Protein Albumin Procalcitonin < 0.1 COVID-19 Source SARS-CoV-2 (PCR) Influenza Type A (PCR) Influenza Type B (PCR) RSV (PCR) 01/19/22 01/19/22 17:15 17:15 WBC RBC Hgb Hct MCV MCH MCHC RDW Plt Count MPV Immature Gran % Neutrophils % Lymphocytes % Monocytes % Eosinophils % Basophils % Nucleated RBC % Absolute Neutrophils Absolute Lymphocytes Absolute Monocytes Absolute Eosinophils Absolute Basophils PT INR APTT D-Dimer VBG Lactate 2.2 H* Sodium 139 Potassium 3.7 Chloride 100 Carbon Dioxide 29.8 Anion Gap 9.2 BUN 5 L Creatinine 1.1 Estimated GFR/1.73 m2 >= 60.00 Glucose 143 H Calcium 9.2 Magnesium 1.6 L Total Bilirubin 0.4 AST 27 ALT 64 H Alkaline Phosphatase 91 Troponin I < 50 NT-Pro-B Natriuret Pep 49 Total Protein 8.8 H Albumin 4.3 Procalcitonin COVID-19 Source SARS-CoV-2 (PCR) Influenza Type A (PCR) Influenza Type B (PCR) RSV (PCR) 01/19/22 18:20 Blood Blood Culture - Pending 01/19/22 18:15 Blood Blood Culture - Pending Preliminary micro results at discharge 01/19/22 18:20 Blood Culture - Pending Blood 01/19/22 18:15 Blood Culture - Pending Blood PFSH All Active Problems (Updated 01/19/22 @ 19:37 by JADE Sandoval) Pulmonary embolism on right (Acute) Fever (Acute) Pleuritic chest pain (Acute) Medical non-compliance (Acute) Right lower lobe pulmonary infiltrate (Acute) Pulmonary emboli (Chronic) Dental infection (Acute) Social History Smoking/Tobacco Use Status: Former Tobacco Use Smoking risk assessment performed?: Yes Alcohol Intake: never Drug use: Occasionally Substance use type: marijuana Do you feel safe at home: Yes Do you feel safe in your relationship?: Yes
--- NOTE | 2022-01-20 12:04 | PDOC.CMDIS ---
- If Service Date Differs Date of service: 01/20/22 Time of Service: 12:04 LACE Index Scoring Tool - Questions: Length of Stay (in days): 1 Acuity (Admit via E.D.?): Yes E.D. Visits: 2 - Answers: Total Score: 6 Risk of Readmission: Low Risk Care Management Discharge Reason for Hospitalization: PE, Pleurisy Discharge Plan: Dane is discharged home via private vehicle with family. Dane will follow discharge plan of care as prescribed. Hospital follow up appt with Dr. Ridley is 01/24/22 and Pulmonology is 02/26/22, as scheduled. New RX's are printed and handed to patient, prior to discharge. Patient/Family Education Needs: Review discharge instructions, limitations, medications and plan to follow up with community providers. ask me three.
== END 2022-01-20 11:42 | disposition home or self-care (01) ==
LOC: ER 19:37 → MS 19:48
PROVIDERS: Admitting Provider Family Medicine; Emergency Provider Physician Assistant; Visit Provider Family Medicine
DX: I26.99 Other pulmonary embolism without acute cor pulmonale (principal); Z91.19 Patient's noncompliance with other medical treatment and regimen; R50.9 Fever, unspecified; R00.0 Tachycardia, unspecified; J45.909 Unspecified asthma, uncomplicated; R07.81 Pleurodynia
CPT/HCPCS: 36415; 71275; 80053; 84145; 87040; 87637; 93005; 96361; 96374; 96375; 99285; 83605; 83735; 83880; 84484; 85025; 85379; 85610; 85730; 93010; 99217; 99220; 99284; G0378; J1885; J3490

== ENCOUNTER 2022-01-24 14:48 | Outpatient (CLI) | payer MEDICAID, SELFPAY ==
--- NOTE | 2022-01-24 14:45 | RT.EKG_ITS ---
APPROVED REPORT Exam: Resting ECG Reason for Exam: S/P PE Patient Location: O HR:110 bpm ECG Measurements Heart Rate 110 AXIS NV 130 P 4 QRSd 79 QRS 29 QT 359 T 84 QTc 486 Conclusion Sinus tachycardia...rate> 99 Borderline prolonged QT interval...QTc >468mS Baseline wander in lead(s) III,V2
== END 2022-01-24 14:49 | disposition home or self-care (01) ==
LOC: DI.KIM 14:49
PROVIDERS: Visit Provider Family Medicine
DX: R00.0 Tachycardia, unspecified (principal); R94.31 Abnormal electrocardiogram [ECG] [EKG]
CPT/HCPCS: 93010

== ENCOUNTER → 2022-02-04 02:21 | Outpatient (CLI) | payer MEDICAID, SELFPAY ==
--- NOTE | 2022-02-04 08:00 | DI.RAD_ITS ---
Exam(s) XR CHEST 2V PA LATERAL EXAM: XR CHEST 2V PA LATERAL CLINICAL HISTORY: Persistent sharp pain after a PE,pleural effusion?, PLEURITIC PAIN, R07.81 TECHNIQUE: 2D digital imaging was performed. COMPARISON: CR ABD FLAT UPRIGHT PA CHEST from 02/28/2013 FINDINGS: The heart is not enlarged. The lungs are clear and well expanded. No pleural effusion seen. Mediastin al contours appear intact. IMPRESSION: Normal chest. RADIATION DOSE DELIVERED: Total DLP
== END ==
PROVIDERS: PCP Family Medicine; Visit Provider Family Medicine
DX: R07.81 Pleurodynia (principal)
CPT/HCPCS: 71046

== ENCOUNTER 2022-07-16 03:02 | Outpatient (CLI) | payer MEDICAID, SELFPAY ==
--- NOTE | 2022-07-16 07:45 | DI.MRI_ITS ---
Exam(s) MR LUMBAR SPINE WO EXAM: MR LUMBAR SPINE WO CLINICAL HISTORY: New onset L sided sciatica,m54.30. TECHNIQUE: Multiplanar multisequence MRI of the Lumbar spine was performed. COMPARISON: CT CT CHEST PE ABD PELVIS W from 09/14/[address] CHEST PE CTA from 01/19/2022 FINDINGS: Bones: The last intervertebral disc space is designated the L5/S1 level for the numbering purpose of this examination. The vertebral body heights are well maintained. Alignment is satisfactory. The si gnal characteristics are unremarkable. Cord: The conus tip ends at the T12 level. It is of normal size and signal intensity. T12-L1: No disc herniations or bulges are present. No central spinal canal or neural foraminal stenos is. L1-2: No disc herniations or bulges are present. No central spinal canal or neural foraminal stenosis . L2-3: No disc herniations or bulges are present. No central spinal canal or neural foraminal stenosis . L3-4: There is a mild diffuse disc bulge. No central spinal canal or neural foraminal stenosis. L4-5: There is a mild diffuse disc bulge. No central spinal canal or neural foraminal stenosis. L5-S1: No disc herniations or bulges are present. No central spinal canal or neural foraminal stenosi s. Soft tissues: The visualized SI joints and sacrum are well maintained. The paraspinal soft tissues ar e unremarkable. IMPRESSION: No evidence of significant spinal stenosis or neuroforaminal narrowing in the lumbar spine. DATA REPOSITORY:
--- NOTE | 2022-07-16 07:45 | DI.RAD_ITS ---
Exam(s) XR LUMBAR SPINE COMPLETE EXAM: XR LUMBAR SPINE COMPLETE CLINICAL HISTORY: New onset L sided sciatica,m54.30. TECHNIQUE: 2D digital imaging was performed of the lumbar spine. Five images were obtained. AP, la teral, right oblique, left oblique and L5-S1 spot views were obtained. COMPARISON: No exams were available for comparison FINDINGS: BONES: No fracture or destructive lesion. Vertebral bodies are unremarkable. Mild degenerative change s of the facets at L5-S1. DISKS: Intervertebral disc spaces are maintained. ALIGNMENT: Lumbar spinal alignment is within normal limits. No spondylolysis or spondylolisthesis. SOFT TISSUE: Normal. IMPRESSION: Mild degenerative changes in the lumbar spine. DATA REPOSITORY: RADIATION DOSE DELIVERED:
== END 2022-07-16 03:22 ==
LOC: DI 03:02
PROVIDERS: PCP Family Medicine; Visit Provider Family Medicine
DX: M54.32 Sciatica, left side (principal); M47.816 Spondylosis without myelopathy or radiculopathy, lumbar region
CPT/HCPCS: 72110; 72148

== ENCOUNTER 2024-08-14 12:17 | Emergency (ER) | payer SELFPAY ==
[2024-08-14] VITALS (14 sets, daily range): BP systolic 123–162; BP diastolic 79–97; PULSE 62–98; RESP 10–21; TEMP 36.6; O2SAT 86–100
--- NOTE | 2024-08-14 12:15 | RT.EKG_ITS ---
APPROVED REPORT Exam: Resting ECG Reason for Exam: Chest pain/Previous PE Patient Location: E HR:87 bpm ECG Measurements Heart Rate 87 AXIS IA 151 P 41 QRSd 90 QRS 20 QT 359 T 57 QTc 432 Conclusion Sinus rhythm, rate 87 No interval abnormalities No STEMI No significant changes from priors
--- NOTE | 2024-08-14 12:45 | DI.RAD_ITS ---
Exam(s) XR CHEST 2V PA LATERAL EXAM: XR CHEST 2V PA LATERAL CLINICAL HISTORY: Chest pain. TECHNIQUE: 2D digital imaging was performed. COMPARISON: CR XR CHEST 2V PA LATERAL from 02/04/2022 FINDINGS: 2 views: Heart size is normal. The mediastinum is not widened. Lungs are clear. No infiltrates nor pleural effusions. IMPRESSION: No acute pulmonary findings. DATA REPOSITORY: RADIATION DOSE DELIVERED:
[2024-08-14 12:52] LABS: Abs Immature Grans 0.06 10^3/uL (0.0-0.06); Absolute Basophil Count 0.03 10^3/uL (0.0-0.2); Absolute Eosinophil Count 0.07 10^3/uL (0.0-0.7); Absolute Lymphocyte Count 1.99 10^3/uL (1.2-3.4); Absolute Monocyte Count 0.83 10^3/uL (0.1-0.8); Absolute Neutrophil Count 5.87 10^3/uL (1.2-6.7); Basophils % 0.3 %; Eosinophils % 0.8 %; HCT 39.8 % (40.0-50.0); HGB 13.8 g/dL (13.5-17.5); Immature Grans % 0.7 %; Lymphocytes % 22.5 %; MCH 31.9 pg (27.0-33.0); MCHC 34.7 % (32.0-36.0); MCV 92 fL (80-95); Monocytes % 9.4 %; Neutrophils % 66.3 %; Platelet Count 192 10^3/uL (130-400); RBC 4.33 10^6/uL (4.36-5.78); RDW 14.1 % (11.8-14.1); RDW-SD 48.1 fL; WBC 8.85 10^3/uL (4.4-10.8)
[2024-08-14 13:20] LABS: ALT 84 U/L (16-63); AST 63 U/L (15-37); Albumin 4.1 g/dL (3.4-5.0); Alkaline Phosphatase 113 U/L (46-116); Anion Gap 9.9 mmol/L (3-11); BUN 10 mg/dL (7-18); Bilirubin, Total 0.6 mg/dL (0.2-1.0); CO2 30.1 mmol/L (21.0-32.0); CREATININE 0.9 mg/dL (0.70-1.30); Calcium 9.4 mg/dL (8.5-10.1); Chloride 100 mmol/L (98-107); D-Dimer 1671 ng/mlFEU (<500); Estimated GFR 114.22 (mL/min/1.73m2); Glucose 120 mg/dL (74-106); Magnesium 1.7 mg/dL; NT-proBNP 56 pg/mL (<300); Potassium 3.8 mmol/L (3.5-5.1); Sodium 140 mmol/L (136-145); Total Protein 8.9 g/dL (6.4-8.2); Troponin I < 4 ng/L (<or=76)
--- NOTE | 2024-08-14 13:31 | DI.VRAD_ITS ---
PROCEDURE INFORMATION: Exam: XR Chest Exam date and time: 08/14/2024 12:59 PM Age: 34 years old Clinical indication: Other: Chest pain TECHNIQUE: Imaging protocol: Radiologic exam of the chest. Views: 2 views. COMPARISON: CR XR CHEST 2V PA LATERAL 02/04/2022 1:32 PM FINDINGS: Lungs: Unremarkable. No consolidation. Pleural spaces: Unremarkable. No pleural effusion. No pneumothorax. Heart/Mediastinum: Unremarkable. No cardiomegaly. Bones/joints: Unremarkable. IMPRESSION: No acute cardiopulmonary process. Dictated and Authenticated by: Heri Alvarez MD. Orderin [facility] Saavedra MD
[2024-08-14] MEDS: Ketorolac 15 MG/ML VIAL IVP (13:52)
[2024-08-14] MEDS: Omnipaque 350 MG/ML 100 ML BTL IJ (14:06)
[2024-08-14] MEDS: Normal Saline - Diluent 50 ML VIAL IJ (14:07)
--- NOTE | 2024-08-14 14:10 | DI.CT_ITS ---
Exam(s) CT CHEST PE CTA EXAM: CT CHEST PE CTA CLINICAL HISTORY: Elevated dimer, hx same. TECHNIQUE: Imaging Protocol: CT angiography of the chest was performed using pulmonary embolus grayson col. Multi planar reconstructions were performed. CONTRAST MATERIAL: Intravenous: Omnipaque 350 Contrast volume: 100 cc COMPARISON: CT CT CHEST PE CTA from 01/19/2022 FINDINGS: CHEST: PULMONARY ARTERIES: There are no intraluminal filling defects to suggest acute pulmonary emboli. LUNGS: There are no confluent infiltrates nor evidence of pulmonary infarction.. Mild increased valentino ings are noted in the lingular segment of the left lung. Mild increased markings in the dependent as pects both lower lobes noted. There are no pleural effusions. MEDIASTINUM: There is no hilar nor mediastinal adenopathy. Visualized thyroid unremarkable. CARDIAC: Heart size is upper normal. There is no pericardial effusion.Caliber of the thoracic aorta is within normal limits. No evidence of dissection. There is no significant shift of the interventri cular septum. There is no reflux of IV contrast into the intrahepatic IVC. PARTIALLY VISUALIZED UPPERMOST ABDOMEN: Advanced liver steatosis. No adrenal masses. Spleen size no rmal. There is no ascites. OSSEOUS: No fractures nor significant osseous lesions.. IMPRESSION: 1. No evidence of acute pulmonary emboli. No evidence of pulmonary infarction.No pleural effusions. Mild increased markings are noted in the lingular segment of the left lung. No intrathoracic adenop athy. No hilar nor mediastinal adenopathy. 2. No evidence of aortic dissection nor pericardial effusion. 3. Advanced liver steatosis RADIATION DOSE DELIVERED: 166.18mGy.cm Total DLP DATA REPOSITORY: All CT scans at this facility are submitted to the National Radiology Data Registry (NRDR) Dose Index Registry (DIR) with the [employer] ([employer]). RADIATION OPTIMIZATION: All CT scans at this facility use at least one of these dose optimization te chniques: automated exposure control; mA and/or kV adjustment per patient size (includes targeted exa ms where dose is matched to clinical indication); or iterative reconstruction.
--- NOTE | 2024-08-14 14:22 | DI.VRAD_ITS ---
PROCEDURE INFORMATION: Exam: CTA Chest With Contrast Exam date and time: 08/14/2024 2:03 PM Age: 34 years old Clinical indication: Other: Elevated dimer, HX same TECHNIQUE: Imaging protocol: Computed tomographic angiography of the chest with contrast. Exam focused on the arteries. 3D rendering (Not supervised by radiologist): MIP and/or 3D reconstructed images were created by the technologist. Contrast material: OMNIPAQUE 350; Contrast volume: 100 ml; Contrast route: INTRAVENOUS (IV); COMPARISON: CT CHEST PE CTA 01/19/2022 5:24 PM FINDINGS: Pulmonary arteries: Normal. No pulmonary emboli. Aorta: Unremarkable. No aortic aneurysm. No aortic dissection. Thyroid: Multiple hypodense thyroid nodules measuring up to 1.2 cm on the left side. Lungs: There are bilateral lower lobe atelectasis. There is no evidence of focal pulmonary consolidation. Pleural spaces: Unremarkable. No pneumothorax. No pleural effusion. Heart: Unremarkable. No cardiomegaly. No pericardial effusion. Lymph nodes: Unremarkable. No enlarged lymph nodes. Liver: There is a diffuse decrease in hepatic parenchymal density, consistent with fatty infiltration. Bones/joints: Unremarkable. No acute fracture. Soft tissues: Unremarkable. IMPRESSION: 1. No pulmonary embolism. 2. No acute infiltrates. 3. Hepatic steatosis. Dictated and Authenticated by: Heri Alvarez MD. Orderin [facility] Dante Saavedra MD
--- NOTE | 2024-08-14 14:47 | ED.GENADUL_ITS ---
Discharge Plan Disposition Patient Disposition: Home Condition: Stable Discharge Details Clinical Impression: Pericarditis, Pleuritic chest pain, Thyroid nodule greater than or equal to 1 cm in diameter incidentally noted on imaging study, Abnormal transaminases, Fatty liver Primary Care Provider: Carlo Ridley ED Provider: Keri Adrian Home Meds and New Rx's Prescriptions: New colchicine 0.6 mg tablet 0.6 mg PO BID 90 Days Qty: 180 0RF No Action Eliquis 5 mg tablet 5 mg PO BID Qty: 180 3RF gabapentin 600 mg tablet 600 mg PO TID Qty: 270 3RF albuterol sulfate 90 mcg/actuation HFA aerosol inhaler 2 puff Inhalation Q4H PRN PRN (Reason: shortness of breath or wheezing) Qty: 8.5 3RF Rx Instructions: spacer acetaminophen 325 MG tablet 2 - 3 tab PO PRN Discharge Instructions Instructions: Pericarditis, Adult (DC) Additional Instructions: You were seen in the emergency department today for evaluation of sharp chest pain and difficulty breathing, and your symptoms are most concerning for pericarditis. This is an inflammation of the outer lining of the heart that we typically see after viral infections, such as the flu that you had a few weeks ago additionally, we did an extensive workup which showed no damage to your heart, no pneumonia, and you did not have a pulmonary embolism. We did have some incidental findings that we discussed, including evidence of fatty liver disease, and an elevation in your liver enzymes, as well as some nodules in your thyroid. These need to be followed up on by your primary care provider at your next visit. The treatment for pericarditis is high-dose aspirin therapy, you will take aspirin, 650 mg (that is to full dose tablets) every 6 hours for the week. (4 times a day) After that, we need to start tapering the aspirin. For the second week, you will take 650 mg of aspirin every 8 hours, or 3 times per day. The third week, you will take 650 mg of aspirin twice a day, and in the fourth and final week you will take 650 mg of aspirin once per day. After that you can stop completely. If you experience abdominal discomfort or acid reflux-like symptoms. Please use omeprazole, as well as Tums, or other [id number] antacids to protect the lining of your stomach. The second agent that we use to treat pericarditis is colchicine, I have sent a prescription for this medication which is taken twice a day for 3 months to prevent recurrence of pericarditis. If you are unable to afford this medication, please take the aspirin only and follow-up with your primary care provider to discuss options. At this time, the patient has had a full medical evaluation and is safe for discharge to home. They are hemodynamically stable, ambulatory, and tolerating PO. They are understanding of the follow-up plan and return precautions. They left our facility without incident. Keri Adrian MD Discharge Data Discharge Date/Time-TO BE ENTERED AT DEPARTURE: 08/14/24 15:23 HPI General Mode of arrival: ambulatory . Date/Time Provider Initiated Documentation: 08/14/24 12:25 . Limitations to Documentation: no limitations . Information obtained by: patient, family and old records reviewed . HPI Narrative: HPI: This is a 34-year-old male patient with a past medical history significant for unprovoked pulmonary embolism, not on anticoagulation due to financial constraints, presenting for evaluation of chest pain and shortness of breath. The patient reports that initially he was having pain in his right back rating around to his right side, but states that this pain has now entirely resolved. He is not having pain on the left side of his chest, worse with deep breath, worse when laying flat, has not been able to tolerate sleep due to reclined positioning. He reports that he has not had any fevers, but did have a recent infection with flu a 3 to 4 weeks ago. The patient states he is most concerned for pulmonary embolism, states that this feels similar though less in severity than his prior episodes. He describes the pain as sharp, stabbing. He has been trying to manage his symptoms at home with medications that he researched online as improving thinness of blood, including aspirin, vitamin D, fish oil and omega-3's, etc. Exam: Gen: Awake and alert, in no apparent distress HEENT: Non-icteric sclera Neck: Supple Lungs: No apparent respiratory distress, normal respiratory effort. Lung sounds clear and equal bilaterally, no wheezes, rhonchi, rales CV: Appears well perfused, heart with regular rate and rhythm, no murmurs auscultated, no definitive pericardial rub is appreciated Abdomen: Non-distended MSK: Moves 4 extremities without apparent limitation in ROM Skin: Visualized skin without rashes, cyanosis. Neuro: Normal Gait, no obvious focal deficits or facial asymmetry. Speaks in full, clear sentences. Psych: Appropriate for situation. MDM: This is a 34-year-old male patient presenting for evaluation of chest pain and shortness of breath. Differential includes but is not limited to pulmonary embolism, pericarditis/myocarditis given the recent viral infection, certainly considered pneumonia. The patient is young, and without significant risk factors for ACS, does not have any neurodeficit or tearing chest pain that significantly increases my concern for aortic pathology. No wheezing to suggest reactive airway disease exacerbation, no evidence of fluid overload to suggest pulmonary edema pleural effusion, lung findings not consistent with pneumothorax. We obtained an EKG which I reviewed, which shows a sinus rhythm without evidence of ischemia, interval abnormality, or ectopy. We will obtain laboratory studies to include CBC, CMP, magnesium, troponin, BNP, and D-dimer. Will obtain a chest x-ray, and provide the patient with a dose of Toradol for initial symptomatic management of pain. ED Course: I reviewed the patient's laboratory studies, which reveal no leukocytosis, anemia or thrombocytopenia. Chemistry panel is without electrolyte derangement or evidence of kidney injury, patient does have a mild transaminitis. Troponin was less than 4 and there has been no delta change on 1 hour recheck. D-dimer was significantly elevated to 1600, chest x-ray without focal findings to explain the patient's symptoms. We did proceed with CT pulmonary embolism study, which I reviewed and shows no pulmonary embolism, other focal lung findings or other obvious causes for this patient's symptoms. There were some incidental findings, including thyroid nodules, and fatty infiltration of the liver, which was shared with this patient. A bedside ultrasound shows preserved ejection fraction and no pericardial effusion. However, I am still most concerned for pericarditis given the classic symptoms and the recent viral infection. For this reason, I initiated the patient on a course of high-dose aspirin with a taper as noted in his discharge plan, as well as colchicine for the next 3 months. He was referred to establish with a primary care provider. At this time, the patient has had a full medical evaluation and is safe for discharge to home. They are hemodynamically stable, ambulatory, and tolerating PO. They are understanding of the follow-up plan and return precautions. They left our facility without incident. Keri Adrian MD Related Data Home Medications ?Medication ?Instructions ?Recorded ?Confirmed acetaminophen 325 mg tablet 2 - 3 tab PO PRN 03/31/13 08/14/24 albuterol sulfate 90 mcg/actuation 2 puff inhalation Q4H PRN PRN 06/17/22 08/14/24 aerosol inhaler shortness of breath or wheezing #8.5 grams apixaban 5 mg tablet (Eliquis) 5 mg PO BID #180 tabs 08/06/23 08/14/24 gabapentin 600 mg tablet 600 mg PO TID #270 tabs 08/06/23 08/14/24 colchicine 0.6 mg tablet 0.6 mg PO BID 3 months #180 tabs 08/14/24 Previous Rx's ?Medication ?Instructions ?Recorded albuterol sulfate 90 mcg/actuation 2 puff inhalation Q4H PRN PRN 06/17/22 aerosol inhaler shortness of breath or wheezing #8.5 grams apixaban 5 mg tablet (Eliquis) 5 mg PO BID #180 tabs 08/06/23 gabapentin 600 mg tablet 600 mg PO TID #270 tabs 08/06/23 colchicine 0.6 mg tablet 0.6 mg PO BID 3 months #180 tabs 08/14/24 Allergies Allergy/AdvReac Type Severity Reaction Status Date / Time Penicillins Allergy Unknown unkown as Verified 08/14/24 12:28 child General Stated Complaint: Chest Pain KHADRA: 3 Course Vital Signs Vital signs: Vital Signs Temperature 36.6 C 08/14/24 12:25 Pulse 95 H 08/14/24 12:25 Respiratory Rate 16 08/14/24 12:25 Blood Pressure 162/97 H 08/14/24 12:25 Pulse Oximetry 99 08/14/24 12:25 Temperature 36.6 C 08/14/24 12:25 Pulse 77 08/14/24 13:00 Pulse 77 08/14/24 13:00 Respiratory Rate 15 08/14/24 13:00 Respiratory Effort Normal, Non-Labored 08/14/24 12:37 Blood Pressure 148/79 H 08/14/24 12:31 Blood Pressure Mean 99 08/14/24 12:31 Pulse Oximetry 95 08/14/24 13:00 Pain Level 7 08/14/24 13:52 Lab/Test Results Lab/Test Results: Laboratory Tests Range/Units 03/09/25 12:34 WBC (4.4-10.8) 10^3/uL 8.85 RBC (4.36-5.78) 10^6/uL 4.33 L Hgb (13.5-17.5) g/dL 13.8 Hct (40.0-50.0) % 39.8 L MCV (80-95) fL 92 MCH (27.0-33.0) pg 31.9 MCHC (32.0-36.0) % 34.7 RDW (11.8-14.1) % 14.1 Plt Count (130-400) 10^3/uL 192 MPV (8.0-11.0) fL 9.0 Immature Gran % % 0.7 Neutrophils % % 66.3 Lymphocytes % % 22.5 Monocytes % % 9.4 Eosinophils % % 0.8 Basophils % % 0.3 Nucleated RBC % (0.0-0.3) % 0.0 Absolute Neutrophils (1.2-6.7) 10^3/uL 5.87 Absolute Lymphocytes (1.2-3.4) 10^3/uL 1.99 Absolute Monocytes (0.1-0.8) 10^3/uL 0.83 H Absolute Eosinophils (0.0-0.7) 10^3/uL 0.07 Absolute Basophils (0.0-0.2) 10^3/uL 0.03 D-Dimer (<500) ng/mlFEU 1671 H Sodium (136-145) mmol/L 140 Potassium (3.5-5.1) mmol/L 3.8 Chloride (98-107) mmol/L 100 Carbon Dioxide (21.0-32.0) mmol/L 30.1 Anion Gap (3-11) mmol/L 9.9 BUN (7-18) mg/dL 10 Creatinine (0.70-1.30) mg/dL 0.9 Est GFR (CKD-EPI 2020) (mL/min/1.73m2) 114.22 Glucose (74-106) mg/dL 120 H Calcium (8.5-10.1) mg/dL 9.4 Magnesium mg/dL 1.7 Total Bilirubin (0.2-1.0) mg/dL 0.6 AST (15-37) U/L 63 H ALT (16-63) U/L 84 H Alkaline Phosphatase (46-116) U/L 113 Troponin I (<or=76) ng/L < 4 NT-Pro-B Natriuret Pep (<300) pg/mL 56 Total Protein (6.4-8.2) g/dL 8.9 H Albumin (3.4-5.0) g/dL 4.1 Medical Decision Making Quality:SDOH Health Related Social Needs: No Data to Display PFSH All Active Problems (Updated 08/14/24 @ 15:49 by Keri Adrian MD) Fatty liver (Acute) Abnormal transaminases (Acute) Thyroid nodule greater than or equal to 1 cm in diameter incidentally noted on imaging study (Acute) Pericarditis (Acute) Sciatica (Acute) Pulmonary embolism on right (Acute) Fever (Acute) Pleuritic chest pain (Acute) Medical non-compliance (Acute) Right lower lobe pulmonary infiltrate (Acute) Pulmonary emboli (Chronic) Dental infection (Acute) Social History Smoking/Tobacco Use Status: Former Tobacco Use Smoking risk assessment performed?: Yes Alcohol Intake: never Drug use: Occasionally Substance use type: marijuana Do you feel safe at home: Yes Do you feel safe in your relationship?: Yes POCUS Exam (ED) Limited Cardiac Exam DATE OF EXAM: 08/14/24 TIME OF EXAM: 15:00 PROVIDER THAT PERFORMED THE STUDY: Keri Adrian IS THIS A REPEAT EXAM DURING THIS ENCOUNTER: no REASON FOR EXAM: Chest pain, Dyspnea and Evaluation of LV function VISUALIZED STRUCTURES: Left atrium, Left ventricle, LVOT, Right ventricle, Aortic valve and Interventricular septum VIEW OBTAINED: Parasternal long-axis and Parasternal short-axis PERTINENT FINDINGS/IMPRESSION: No apparent abnormalities; No pericardial effusion INCIDENTAL FINDINGS: Difficult windows due to the patient's inability to tolerate supine or left lateral positioning Exam complete
[2024-08-14] MEDS: Aspirin 325 MG TAB 650 MG PO (14:52)
[2024-08-14] MEDS: Colchicine 0.6 MG TAB PO (14:52)
[2024-08-14 15:26] LABS: Troponin I < 4 ng/L (<or=76)
--- NOTE | 2024-08-16 09:24 | NUR.NOTE ---
Patient EKG was performed after time change. It is 1 hour off. Nursing Note:
== END 2024-08-14 15:23 | disposition home or self-care (01) ==
PROVIDERS: Emergency Provider Emergency Medicine; PCP Family Medicine
DX: R07.9 Chest pain, unspecified (principal); I31.9 Disease of pericardium, unspecified; R06.02 Shortness of breath; E04.1 Nontoxic single thyroid nodule; R74.8 Abnormal levels of other serum enzymes; K76.0 Fatty (change of) liver, not elsewhere classified
CPT/HCPCS: 36415; 71275; 80053; 93005; 93308; 96374; 99285; 71046; 83735; 83880; 84484; 85025; 85379; 93010; 99284; J1885; J3490